=== PATIENT | male | born 1980 | race Hispanic/Latino ===

== ENCOUNTER 2017-11-17 14:30 | Emergency (ER) | payer OTHER ==
[2017-11-17] MEDS ORDERED: ORPHENADRINE CITRATE 30 MG/ML ML ONE (15:35)
[2017-11-17] MEDS ORDERED: ONDANSETRON ODT 4 MG TAB ONE (15:36)
[2017-11-17] MEDS ORDERED: MORPHINE SULFATE 4 MG/1ML SYG ONE (15:36)
== END 2017-11-17 16:01 | disposition home or self-care (01) ==
LOC: EDH 14:30
DX: G89.29 Other chronic pain (principal); M54.5 Low back pain; Z88.8 Allergy status to other drugs, medicaments and biological substances
CPT/HCPCS: 96372 ×2; 99284; J2270; J2360

== ENCOUNTER 2018-06-06 08:31 | Emergency (ER) | payer OTHER ==
[2018-06-06] MEDS ORDERED: METHYLPREDNISOLONE SOD SUCC 125MG/2ML VIAL ONE (09:37)
[2018-06-06] MEDS ORDERED: KETOROLAC TROMETHAMINE 30MG/ML ONE (09:37)
== END 2018-06-06 09:47 | disposition home or self-care (01) ==
LOC: EDH 08:31
DX: R07.89 Other chest pain (principal)
CPT/HCPCS: 71045; 96372 ×2; 99283; J1885; J2930

== ENCOUNTER 2018-09-19 06:39 | Emergency (ER) | payer OTHER ==
[2018-09-19] MEDS ORDERED: DEXAMETHASONE SOD PHOSPHATE 10MG/ML 1ML VIAL ONE (08:54)
[2018-09-19] MEDS ORDERED: ORPHENADRINE CITRATE 30 MG/ML ML ONE (08:55)
[2018-09-19 09:17] LABS: CREATININE 1.2 mg/dL (0.5-1.5); POTASSIUM 4.3 mmol/L (3.5-5.1)
== END 2018-09-19 09:59 | disposition left against medical advice (07) ==
LOC: EDH 06:39
DX: G89.29 Other chronic pain (principal); M54.5 Low back pain; R20.2 Paresthesia of skin
CPT/HCPCS: 36415; 80048; 96372 ×2; 99283; J1100; J2360